=== PATIENT | female | born 1945 | race Caucasian/White ===

== ENCOUNTER 2016-05-02 12:57 | Inpatient (IN) ==
--- NOTE | 2016-05-01 22:15 | Discharge Summary ---
<Wen Pugh L - Last Filed: 05/01/16 22:12> - Discharge Diagnosis (1) Fracture of humeral head, closed Priority: Primary Status: Acute Qualifiers: Encounter type: initial encounter Laterality: right Qualified Code(s): S42.291A - Other displaced fracture of upper end of right humerus, initial encounter for closed fracture - Discharge Medications Home Medications: Calcium Carbonate/Vitamin D3 [Calcium 600 + D Tablet] 1 tab PO DAILY 12/29/14 [ History] Cholecalciferol (Vitamin D3) [Vitamin D] 1,000 unit PO BID 12/29/14 [History] Ferrous Sulfate 325 mg PO TID 12/29/14 [History] Gabapentin [Neurontin] 900 mg PO TID 12/29/14 [History] Metoprolol [Lopressor] 100 mg PO BID 12/29/14 [History] Potassium Chloride 20 meq PO DAILY 12/29/14 [History] Triamterene/HCTZ 37.5/25mg [Dyazide] 1 tab PO DAILY 12/29/14 [History] Alendronate Sodium 70 mg PO Q7D #12 tablet 12/30/14 [Rx] Multivit-Min/FA/Lycopen/Lutein [Adults 50+ Multivitamin Tablet] 1 tab PO DAILY 12/25/15 [History] Ibuprofen [Motrin] 600 mg PO TID PRN #30 tab 04/27/16 [Rx] OxyCODONE Immed Rel [Roxicodone 5 MG] 5 - 10 mg PO Q6HR PRN #40 tablet 05/01/16 [Rx] Acetaminophen [Tylenol Arthritis] 650 mg PO Q6H PRN 05/02/16 [History] HYDROcodone/Acet 5/325 mg [[place] 5-325 mg] 1 tab PO Q6H PRN 05/02/16 [History] Allergies/Adverse Reactions: Allergies acetaminophen [From Darvocet-N] Allergy (Verified 09/23/14 11:44) Nausea Amoxicillin Allergy (Verified 09/23/14 11:44) Nausea meperidine [From Demerol] Allergy (Verified 09/23/14 11:44) Nausea promethazine [From Phenergan] Allergy (Verified 09/23/14 11:44) Nausea propoxyphene [From Darvocet-N] Allergy (Verified 09/23/14 11:44) Nausea Primary care physician: Lainey Lazo - Patient Status Disposition: Home, Self-Care Condition: Good - Discharge Instructions Follow Up With: Lainey Collins MD [Primary Care Provider] - - Hospital Course Hospital course: Ms. Glass is a 71 year old female - Time Spent with Patient Total time spent providing and/or coordinating discharge services: <LaronUrbano - Last Filed: 05/03/16 06:26> Date of Encounter: 05/03/16 Time of Encounter: 06:26 - Discharge Diagnosis (1) Osteoporosis Priority: Secondary Status: Chronic Qualifiers: Osteoporosis type: unspecified Presence of current pathological fracture: unspecified Qualified Code(s): M81.0 - Age-related osteoporosis without current pathological fracture (2) Fracture of humeral head, closed Priority: Primary Status: Acute Qualifiers: Encounter type: initial encounter Laterality: right Qualified Code(s): S42.291A - Other displaced fracture of upper end of right humerus, initial encounter for closed fracture (3) HTN (hypertension) Priority: Secondary Status: Chronic Qualifiers: Hypertension type: unspecified secondary hypertension Qualified Code(s): I15.9 - Secondary hypertension, unspecified; I15 - Secondary hypertension (4) Arrhythmia Priority: Secondary Status: Acute Qualifiers: Arrhythmia type: unspecified cardiac arrhythmia Qualified Code(s): I49.9 - Cardiac arrhythmia, unspecified Primary care physician: Lainey Lazo - Patient Status Functional capacity at discharge: independent ambulation Overall status at discharge: patient is progressing back to baseline - Hospital Course Hospital course: Ms. Glass is a 71 year old female The patient had an uneventful postoperative course. They received antibiotics and physical therapy and were discharged in stable condition. There will follow -up in the office in 2 weeks. - Time Spent with Patient Total time spent providing and/or coordinating discharge services:
[2016-05-02] MEDS ORDERED: CeFAZolin Pre 2,000 MG/100 ML 2,000 MG/100 ML BAG IVPB ONE (14:00)
[2016-05-02] MEDS ORDERED: Lidocaine -MPF 1% 2 ML VIAL ID ONE (14:00)
[2016-05-02] MEDS ORDERED: Ringers Solution, Lactated 1,000 ML IVC SCH ×2 (14:00→21:51)
[2016-05-02] MEDS ORDERED: Famotidine 20 MG/2 ML VIAL IVP ONE (14:02)
[2016-05-02] MEDS ORDERED: *HR* Propofol 200 MG/20 ML VIAL IVP ONE (15:20)
[2016-05-02] MEDS ORDERED: *HR* FentaNYL (PF) 100 MCG/2 ML VIAL ONE ×2 (15:20→16:52)
[2016-05-02] MEDS ORDERED: Dexamethasone 4 MG/ML VIAL ONE (15:21)
[2016-05-02] MEDS ORDERED: Ondansetron 4 MG/2 ML VIAL ONE (15:21)
[2016-05-02] MEDS ORDERED: *HR* Succinylcholine 200 MG/10 ML VIAL IVP ONE (15:21)
[2016-05-02] MEDS ORDERED: *HR* Rocuronium Bromide 50 MG/5 ML VIAL ONE (15:21)
[2016-05-02] MEDS ORDERED: *HR* Midazolam HCl 5 MG/5 ML VIAL IVP ONE ×2 (15:21→16:52)
[2016-05-02] MEDS ORDERED: Lidocaine -MPF 2% 2 ML VIAL ONE (15:21)
--- NOTE | 2016-05-02 15:28 | History & Physical Report ---
Date of Encounter: 05/02/16 Time of Encounter: 15:28 24 Hour HP Update - Instructions Instructions: If the History and Physical is less than 30 days old and was completed prior to A.M. admission and or procedure and has NOT been updated on calendar day of procedure please complete this update prior to performing procedure. - Update Patient reports changes in Medical Condition: No Changes in assessment/condition: No Changes in Medication: No Preop tests/diagnostics Reviewed: Yes Surgery Remains Indicated: Yes Consent for Planned Operative Procedure(s) Verified: Yes - Pre-Operative Checklist Preoperative Checklist Indicated: No Prophylactic Antibiotic Ordered: Yes Is VTE Prophylaxis Indicated?: Yes
--- NOTE | 2016-05-02 16:15 | Anesthesia Evaluation PreOp ---
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 History: Other (peripheral neuropathy) Other Medical History: Other (hx colon cancer (currently in remission)) Anesthesia History: No Prior Anesthetic Complications (R hemicolectomy, cholecystectomy, A port, L shoulder, L cataract) Alcohol Use: none Drug use: none Medications and Allergies Calcium Carbonate/Vitamin D3 [Calcium 600 + D Tablet] 1 tab PO DAILY 12/29/14 [ History] Cholecalciferol (Vitamin D3) [Vitamin D] 1,000 unit PO BID 12/29/14 [History] Ferrous Sulfate 325 mg PO TID 12/29/14 [History] Gabapentin [Neurontin] 900 mg PO TID 12/29/14 [History] Metoprolol [Lopressor] 100 mg PO BID 12/29/14 [History] Potassium Chloride 20 meq PO DAILY 12/29/14 [History] Triamterene/HCTZ 37.5/25mg [Dyazide] 1 tab PO DAILY 12/29/14 [History] Alendronate Sodium 70 mg PO Q7D #12 tablet 12/30/14 [Rx] Multivit-Min/FA/Lycopen/Lutein [Adults 50+ Multivitamin Tablet] 1 tab PO DAILY 12/25/15 [History] Ibuprofen [Motrin] 600 mg PO TID PRN #30 tab 04/27/16 [Rx] OxyCODONE Immed Rel [Roxicodone 5 MG] 5 - 10 mg PO Q6HR PRN #40 tablet 05/01/16 [Rx] Acetaminophen [Tylenol Arthritis] 650 mg PO Q6H PRN 05/02/16 [History] HYDROcodone/Acet 5/325 mg [[place] 5-325 mg] 1 tab PO Q6H PRN 05/02/16 [History] Allergies acetaminophen [From Darvocet-N] Allergy (Verified 09/23/14 11:44) Nausea Amoxicillin Allergy (Verified 09/23/14 11:44) Nausea meperidine [From Demerol] Allergy (Verified 09/23/14 11:44) Nausea promethazine [From Phenergan] Allergy (Verified 09/23/14 11:44) Nausea propoxyphene [From Darvocet-N] Allergy (Verified 09/23/14 11:44) Nausea - Meds/Allergy Pre-op Review Medications Reviewed: Yes Allergies Reviewed: Yes Beta Blockers on Current Med List: No Anesthesia Results - Labs Laboratory Tests 04/29/16 04/29/16 12:38 12:38 WBC 7.6 Hgb 11.8 Hct 36.3 Plt Count 205 Sodium 138 Potassium 4.1 Chloride 103 Carbon Dioxide 27 BUN 18 Creatinine 0.78 Est GFR ( Amer) > 60 Est GFR (Non-Af Amer) > 60 BUN/Creatinine Ratio 23 Glucose 90 Calculated Osmolality 287 Calcium 9.3 - Imaging EKG: report reviewed, image reviewed (SR) Anesthesia Exam Last Vital Signs Temp 98.0 F 05/02/16 13:33 Pulse 82 05/02/16 13:33 Resp 18 05/02/16 13:33 BP 120/57 05/02/16 13:33 Pulse Ox 96 05/02/16 13:33 Weight: 85 kg NPO (# of Hours): >> 8 hrs - HEENT Pupil (Motor): Pupils equal, EOMI Mallampati: I Teeth: Edentulous Oral Opening: Greater than 3 - FRANCHISE SPECIALIST LOC: Oriented FRANCHISE SPECIALIST Motor: Normal RUE, Normal LUE, Normal RLE, Normal LLE, Normal Face - Cardiac Rhythm: Regular Murmur: None - Pulmonary Breath Sounds: bilateral Clear Respiratory Effort: Symmetrical Anesthesia Assess/Plan ASA Score: 3 Modified Nohemy Scale for Level of Consciousness: Cooperative, oriented, and tranquil Anesthetic Plan: General, Regional Monitoring Plan: Standard Monitors Recovery Plan: PACU
[2016-05-02] MEDS ORDERED: Bupivacaine/Clonidine Syringe 1 EACH SYRINGE ONE (16:52)
[2016-05-02] MEDS ORDERED: Lidocaine -MPF 4% 5 ML AMPUL ONE (16:57)
--- NOTE | 2016-05-02 17:22 | Anesthesia Procedures ---
Date of Encounter: 05/02/16 Time of Encounter: 17:10 Procedures: Anesthesia - Nerve Block Procedure Date: 05/02/16 Time: 17:10 Checklist: Correct Patient Identifier, Correct procedure, History checked Correct side: Right Blood Thinner: No Monitor Applied: EKG, BP, Pulse Oximetry Supplemental Oxygen via Nasal Cannula (L/min): 2 Sedation: Versed (mg): 2 Sedation: Fentanyl (mcg): 100 Indication: Post Op Analgesia Block Type: Supraclavicular Catheter placed: No Sterile Technique: Yes Ultrasound used: Yes Anatomy identified: Yes Visual spread of Local: Yes Neuro Stimulation: Yes Nerve Stimulator Range: 0.2 - 0.4 mA Blood on Needle Aspiration: No Smooth Injection of Local: Yes Pain with Injection of Local: No Prep: Chlorhexadine Needle: 22 x 50 mm Stimuplex Local: 0.25% Bupivicaine w/Clonidine 20 mcg/cc Number of Attempts: 1 Complications: None/effective block Vitals: VSS
[2016-05-02] MEDS ORDERED: *HR* Enoxaparin 30 MG/0.3 ML SYRINGE SQ SCH (18:00)
[2016-05-02] MEDS ORDERED: EPHEDrine 50 MG/ML VIAL ONE (18:53)
--- NOTE | 2016-05-02 19:28 | Orthopedic Operative Note ---
Date of procedure: 05/02/16 Pre-op diagnosis: Displaced right proximal humerus fracture Post-op diagnosis: same Procedure: Procedure: Right Reverse total shoulder replacment, Biceps tenodesis Estimated blood loss: 100 cc Hardware:Arthrex glenoid baseplate: Small , 2 4.5 screws. 1 6.5 screw, glenosphere: 39 lateral , humeral stem: 8 , poly insert: 6 metal 3 constrained Annie Procedural Notes: Patient with a head split and displaced greater tuberosity fracture. Poor quality bone. Operative procedure: The patient was brought to the operating room and placed on the operating room table. After general anesthesia was administered the operative shoulder was examined. Findings were noted. The patient was placed in the modified beachchair position. All pressure points were padded appropriately. And the head was stabilized in the neutral position. The operative extremity was prepped and draped in the sterile surgical fashion. The patient received IV antibiotics prior to skin incision. A standard deltopectoral approach was made to the operative shoulder. Incision was made to the skin and subcutaneous tissue,hemo stasis was obtained with Bovie cautery. Using careful blunt dissection the cephalic vein was identified and mobilized medially. The deltopectoral interval was developed and the clavipectoral fascia was incised. The lesser tuberosity was identified and tagged with 2 #2 fiber loops and 2 #2 FiberWire suture. The greater tuberosity was identified and tagged with 6 #5 FiberWire suture. The humeral head was removed humeral head was noted to have a head split was removed in pieces. Quality of the bone of both the head and the tuberosity was poor. Anterior and posterior Bankart retractors were placed to expose the glenoid. The glenoid guide was seated and the centering hole was made. It was reamed with the appropriate reamer. The small baseplate was seated and secured with (2 ) 4.5 screws and one 6.5 screw. The baseplate was irrigated and dried and the appropriate 39 lateral was seated and secured with the Hernandez taper. The Hernandez taper was tested and found to be secure the humerus was redislocated and prepared with the diaphyseal reamers, followed by a broaching process up to the appropriate size 8 in 20 degrees of retro-version. Trial reduction found the shoulder to be relocatable. Trial components were removed and [address] on either side of the bicpital groove and filled with #5 fiberwire sugrue incorporating the biceps, for a later biceps tenodesis and vertical fixation of the tuberosities. The real humeral component size [address] in 20 degrees of retroversion. Trial reduction found the shoulder to be relocatable and stable with the appropriate 6 metal 3 constrained Annie. Trial component was removed and the real implants was seated and secured the shoulder was reduced. The shoulder had excellent motion and excellent stability and no evidence of dislocation. The greater tuberosity was reduced and repaired to the implant with 2 # 5 fiberwire sutures. the lesser tuberosity was reduced and repaired to this construct with 2 #5 fiberwire sutures. Vertical fixation of the tuberosities was accomplished with the #5 fiberwire sutures in the humeral shaft , incoporating the bices in a box stitch type repair. The deep tissue was irrigated with pulse irrigation. The deltopectoral interval was closed with a running #1 PDS suture, subcutaneous tissue was irrigated and closed with 0 PDS suture, the skin was closed with Dermabond. The patient was placed in a sterile dressing, abduction brace and extubated. The patient was then transferred to the recovery room in stable condition. Anesthesia: VENTURA Surgeon: Urbano Larry Condition: stable Disposition: PACU
--- NOTE | 2016-05-02 19:58 | Anesthesia Evaluation Post Op ---
Date of Encounter: 05/02/16 Time of Encounter: 20:00 - Vital Signs Vital Signs: Vital Signs/O2 Sat/Glucose, Most Current Pulse BP Pulse Ox 05/02/16 17:01 95 135/69 96 - Lungs Lungs: Clear Ascult./Percussion - Airway Airway: Non-obstructed - Cardiovascular Regular Rate - Mental Status Mental Status: Alert & Oriented, Answers Appropriately - Pain Pain Scale: 0 - Nausea Vomiting Nausea Vomiting: Not Present - Hydration Hydration: Ice chips - Discharge PostOp Status: Transfer Patient to floor
[2016-05-02 20:16] LABS: Hematocrit 33.2 % (35.3-44.9); Hemoglobin 10.6 g/dL (11.5-15.4)
[2016-05-02] MEDS ORDERED: *HR* OxyCODONE Immed Rel 5 MG TABLET PO PRN ×2 (21:51)
[2016-05-02] MEDS ORDERED: *HR* HYDROmorphone (PF) 1 MG/ML SYRINGE IVP PRN (21:51)
[2016-05-02] MEDS ORDERED: Naloxone 0.4 MG/ML INJ IVP PRN (21:51)
[2016-05-02] MEDS ORDERED: Sennosides 8.6 MG TABLET PO PRN (21:51)
[2016-05-02] MEDS ORDERED: Temazepam 15 MG CAPSULE PO PRN (21:51)
[2016-05-02] MEDS ORDERED: NON-FORMULARY MEDICATION 1 EACH EACH (Alendronate Sodium [Alendronate Sodium] 70 MG) PO SCH (21:51)
[2016-05-02] MEDS ORDERED: Ondansetron 4 MG/2 ML VIAL IVP PRN (21:51)
[2016-05-02] MEDS ORDERED: Acetaminophen 325 MG TABLET PO PRN (21:51)
[2016-05-02] MEDS ORDERED: MOM Conc 10 ML UD.LIQ PO PRN (21:51)
[2016-05-03] MEDS: ceFAZolin 2,000 MG in D5% in Water 100 ML IVPB SCH ×2 (00:22→08:45)
[2016-05-03] MEDS: Cholecalciferol (D-3) 1,000 UNIT TABLET PO SCH ×2 (00:23→08:46)
[2016-05-03] MEDS: Metoprolol 100 MG TABLET PO SCH ×2 (00:23→08:45)
[2016-05-03] MEDS: Gabapentin 300 MG CAPSULE PO SCH ×2 (00:23→08:46)
[2016-05-03 05:57] LABS: Hematocrit 34.3 % (35.3-44.9); Hemoglobin 10.8 g/dL (11.5-15.4)
[2016-05-03] MEDS ORDERED: *HR* Enoxaparin 30 MG/0.3 ML SYRINGE SQ SCH (06:00)
--- NOTE | 2016-05-03 06:27 | Orthopedics Progress Note ---
Date of Encounter: 05/03/16 Time of Encounter: 06:26 - Assessment and Plan (1) Osteoporosis Current Visit: No Status: Chronic Qualifiers: Osteoporosis type: unspecified Presence of current pathological fracture: unspecified Qualified Code(s): M81.0 - Age-related osteoporosis without current pathological fracture (2) Fracture of humeral head, closed Current Visit: No Status: Acute Qualifiers: Encounter type: initial encounter Laterality: right Qualified Code(s): S42.291A - Other displaced fracture of upper end of right humerus, initial encounter for closed fracture (3) HTN (hypertension) Current Visit: Yes Status: Chronic Qualifiers: Hypertension type: unspecified secondary hypertension Qualified Code(s): I15.9 - Secondary hypertension, unspecified; I15 - Secondary hypertension (4) Arrhythmia Current Visit: Yes Status: Acute Qualifiers: Arrhythmia type: unspecified cardiac arrhythmia Qualified Code(s): I49.9 - Cardiac arrhythmia, unspecified Subjective Interval history: Patient was seen this morning doing well without complaints. Afebrile vital signs stable. Operative extremity: Neurovascularly intact Dressing clean dry and intact Calves nontender Assessment and plan: Continue with postoperative care Discharged today Objective Vital signs: Vital Signs Temp Pulse Resp BP Pulse Ox 05/03/16 04:27 98.2 F 64 17 104/68 100 05/02/16 21:52 97.5 F L 95 16 115/55 100 05/02/16 21:21 97.5 F L 93 16 117/54 100 05/02/16 21:07 97 05/02/16 20:50 97.4 F L 96 16 114/43 96 05/02/16 20:17 98.6 F 96 16 118/51 93 L 05/02/16 20:07 101 18 119/67 93 L 05/02/16 19:57 104 18 127/81 96 05/02/16 19:47 98.5 F 118 18 117/56 98 05/02/16 17:01 95 135/69 96 05/02/16 13:33 98.0 F 82 18 120/57 96 Intake and Output 05/02/16 05/02/16 05/03/16 15:59 23:59 07:59 Intake Total 400 / 400 Output Total 100 / 100 400 / 400 Balance -100 / -100 0 / 0 Intake: IV Fluids 100 / 100 Ancef 2,000 MG In 100 / 100 Dextrose 5% 100 ML @ 200 mls/hr IVPB Q8HR [facility] Rx#: [id number] Oral 300 / 300 Output: Urine 400 / 400 Estimated Blood Loss 100 / 100 Other: Weight 85.275 kg - Labs CBC & BMP: 05/03/16 05:26 Labs: Abnormal lab results Hgb 10.8 g/dL (11.5-15.4) L 05/03/16 05:26 Hct 34.3 % (35.3-44.9) L 05/03/16 05:26 - VTE Documentation of Mechanical Device: Venous foot pump, device Consult Discharge Plan - Plan Referrals: Lainey Collins MD [Primary Care Provider] -
[2016-05-03] MEDS ORDERED: Multivit/Ca/Min/Fe/FA 1 TAB TABLET PO SCH (09:00)
[2016-05-03] MEDS ORDERED: Calcium 600 + D PO SCH (09:00)
[2016-05-03 11:02] VITALS: BP 97/62
== END 2016-05-03 13:57 | disposition home or self-care (01) | DRG 483 ==
LOC: SAMDAY 12:57 → 3NENU 20:59
PROVIDERS: ADMIT Orthopaedic Surgery; ATTEND Orthopaedic Surgery

== ENCOUNTER 2019-07-23 13:04 | Inpatient (IN) ==
[2019-07-23] MEDS ORDERED: Scopolamine Patch 1.5 MG PATCH.TD72 TD SCH (13:30)
[2019-07-23] MEDS ORDERED: Bisacodyl 10 MG RECTAL SUPPOSITORY RC PRN (13:42)
[2019-07-23] MEDS: *HR* FentaNYL (PF) 100 MCG/2 ML VIAL IVP PRN (20:40)
[2019-07-24] MEDS: Atropine Sulfate 1% 40 DROP/2 ML BOTTLE SL PRN ×4 (01:56→21:55)
[2019-07-24] MEDS: *HR* FentaNYL (PF) 100 MCG/2 ML VIAL IVP PRN ×4 (01:57→16:50)
[2019-07-24] MEDS ORDERED: Acetaminophen 650 MG RECTAL SUPP RC PRN (09:38)
[2019-07-24] MEDS: *HR* LORazepam 2 MG/ML VIAL IVP PRN (15:21)
[2019-07-24] MEDS: Haloperidol Lactate 5 MG/ML VIAL IVP PRN (16:50)
[2019-07-25] MEDS: *HR* FentaNYL (PF) 100 MCG/2 ML VIAL IVP PRN ×4 (00:09→15:11)
[2019-07-25 11:35] VITALS: BP 148/91
[2019-07-25] MEDS: Haloperidol Lactate 5 MG/ML VIAL IVP PRN (13:51)
[2019-07-25] MEDS: Atropine Sulfate 1% 40 DROP/2 ML BOTTLE SL PRN (13:54)
[2019-07-25] MEDS: *HR* LORazepam 2 MG/ML VIAL IVP PRN (15:08)
== END 2019-07-25 22:01 | disposition expired | DRG 951 ==
LOC: 2ANU 14:59
PROVIDERS: ADMIT Internal Medicine Hospice and Palliative Medicine; ATTEND Internal Medicine Hospice and Palliative Medicine